=== PATIENT | female | born 1990 | race African-American/Black ===

== ENCOUNTER 2019-03-31 13:22 | Outpatient (CLI) | payer MEDICAID ==
[~2019-03-31] VITALS: Ht 162.6 cm; Wt 74.5 kg
--- NOTE | 2019-03-31 13:25 | NUR ---
1325- G4L0 [address] VÁSQUEZ AMBULATORY TO LR3 WITH COMPLAINT OF SROM AT 1030 UPON AWAKENING NOTICED WET UNDERWEAR, CHANGED UNDERWEAR AND SHOWERED AND NOTICED FEELING WET AGAIN. NO PAD IN UNDERWEAR UPON ARRIVAL AND REPORTS NO FLUID NOW. DENIES VAGINAL BLEEDING. REPORTS GOOD MOVEMENT. PLACED ON EFM, VSS, REACTIVE STRIP. SVE /-3, AMNITEST NEG, BOWI. UPDATED ON PLAN OF CARE. ASSESSMENT COMPLETE. 1407-DR. NORMAN NOTIFIED. 1534-PATIENT OFF EFM. DISCHARGE INSTRUCTIONS REVIEWED WITH PATEINT AND MOTHER. VERBALIZED UNDERSTANDING DENIES QUESTIONS. 1455-LEFT NARE SWABED FOR MRSA PROTOCOL. 1500-PATIENT AMBULATORY OFF UNIT WITH MOTHER.
[2019-03-31 13:31] VITALS: BP 118/70; PULSE 114; TEMP 98.6
[2019-03-31] MEDS ORDERED: PRENATAL (13:50)
[2019-03-31] MEDS ORDERED: ZYRTEC 10MG10 MG PO (13:51)
[2019-03-31] MEDS ORDERED: PROAIR HFA0.09 MG/AC IH (13:51)
[2019-03-31] MEDS ORDERED: VITAMIN D 1001000 IU PO (13:52)
[2019-03-31 14:00] VITALS: BP 118/70; PULSE 114; TEMP 98.6
[2019-03-31 14:34] VITALS: BP 104/68; PULSE 102
== END 2019-03-31 15:00 | disposition home or self-care (01) ==
LOC: LDRO 13:22 → LDR 13:29 → LDRO 13:29 → LDR 15:00
DX: O42.92 Full-term premature rupture of membranes, unspecified as to length of time between rupture and onset of labor (principal); Z3A.38 38 weeks gestation of pregnancy
CPT/HCPCS: OP

== ENCOUNTER 2019-04-17 06:52 | Inpatient (IN) | payer MEDICAID ==
[2019-04-17] VITALS (33 sets, daily range): BP systolic 95–121; BP diastolic 50–82; PULSE 67–100; TEMP 97.9–98.4
[~2019-04-17] VITALS: Ht 157.5 cm; Wt 76.8 kg
[~2019-04-17 06:52] MED LIST: PRENATAL; PROAIR HFA0.09 MG/AC IH; VITAMIN D 1001000 IU PO; ZYRTEC 10MG10 MG PO
--- NOTE | 2019-04-17 07:30 | NUR ---
Patient ambulatory to LDR3 for induction of labor. G4L0 at 40.3 weeks gestation, GBS+. Patient changed into gown, wedged left in bed. EFMs explained and applied. FHR 120 bpm, reactive. No CTX per toco or patient reports. VSS. Assessment completed, consents signed. Hx of marijauna use during , discussed UDS and cord stat with patient and patient states understanding. IV started in left hand with labs drawn from site. LR infusing per protocol. Clindamycin started per GBS+ protocol. Plan of care of reviewed. Call light within reach.
--- NOTE | 2019-04-17 07:45 | NUR ---
Pitocin started at 2mu per orders and protocol.
[2019-04-17 08:10] LABS: HEMOGLOBIN 11.5 g/dl (12.5-16.0); MEAN CELL VOLUME 87 fl (80.0-100.0); MEAN CORPUSCULAR HEMOGLOBIN 31 pg (27.0-31.0); MEAN CORPUSCULAR HGB CONC 35 g/dl (33.0-37.0); MEAN PLATELET VOLUME 11.3 fl (7.4-10.4); PLATELET COUNT 149 K/mm3 (130-400); RED BLOOD COUNT 3.75 M/mm3 (4.10-5.30); REDCELL DISTRIBUTION WIDTH-CV 13.4 % (11.5-14.5)
[2019-04-17 08:11] LABS: HEMATOCRIT 32.6 % (37.0-47.0)
--- NOTE | 2019-04-17 08:35 | NUR ---
Dr. Gandara to patient room, reviews strip, discusses plan of care. SVE with AROM. 2-/-2, clear fluid noted.
[2019-04-17 08:52] LABS: BAND 7 % (0-10); EOSINOPHIL 1 % (0-4); LYMPHOCYTE 30 % (20.0-51.0); METAMYELOCYTE 1 % (0-0); NEUTROPHILS 57 % (42.0-75.2); PLATELET ESTIMATE NORMAL (NORMAL)
[2019-04-17 09:29] LABS: TRICYCLIC ANTIDEPRESS URINE NEGATIVE
--- NOTE | 2019-04-17 09:35 | NUR ---
Patient more uncomfortable with contractions, requesting epidural. BACK SHOE OPERATOR notified.
--- NOTE | 2019-04-17 10:14 | NUR ---
1000 SEBASTIAN Hurtado to room to place epidural. 1005 Patient sits upright on the edge of the bed for procedure. EFM intermittently tracing in this position. 1014 Test dose administered. See anesthesia record for details. 1019 Patient wedged to left side.
--- NOTE | 2019-04-17 11:20 | NUR ---
1116 Osborne catheter placed. 1118 SVE by this nurse, large amount of clear fluid noted, prolapsed umbilical cord felt. This nurse continues vaginal exam and calls for additional help. 1119 Dr. Gandara notified but in surgery, 1119 Dr. Moore called and states on her way. 1120 Patient to OR.
[2019-04-18 00:35] VITALS: BP 95/67; PULSE 72; TEMP 97.7
[2019-04-18 04:30] VITALS: BP 104/76; PULSE 96; TEMP 98.2
[2019-04-18 07:50] VITALS: BP 104/57; PULSE 82; TEMP 98.1
--- NOTE | 2019-04-18 09:09 | NUR ---
Initial visit; Mom and Grandmother thanked Sonography Technologist for offering congratulations for the of their little girl. Sonography Technologist thanked them for choosing [facility].
--- NOTE | 2019-04-18 09:52 | NUR ---
Physician Intensivist met with patient and patient's mother, Joanna to review supports and any needed resources. Patient lives in [place] with her mother. Patient reports father of baby, Brock Lopez (ph#[phone]) is involved and has visited hospital. Patient states she does not work and is a student at [employer]. Patient has not explored childcare options at this time but plans to stay home with baby for a couple months. Patient is currently using formula but is going to work with a contract specialist today to hopefully start . Patient states she has all supplies needed for her baby. SW reviewed patient history of marijuana use during . Patient is open with SW and states the last time she used was in December and has not used since. SW reviewed chart and patient had two positive drug screens during (11/29/18 and 01/19/19). SW awaiting cord blood results. No additional concerns at this time. SW provided update to Dr. Marie. SW made report to Child Protective Services based on positive urine drug screens during . Intake #[id number].
[2019-04-18 16:30] VITALS: BP 108/62; PULSE 76; TEMP 97.9
[2019-04-18 20:00] VITALS: BP 102/62; PULSE 73; TEMP 98
[2019-04-19 07:15] VITALS: BP 109/60; PULSE 81; TEMP 98.2
[2019-04-19] MEDS ORDERED: MOTRIN 800800 MG/TAB PO (07:50)
[2019-04-19] MEDS ORDERED: PERCOCET 325 MG1 TA2 PO (07:51)
--- NOTE | 2019-04-20 08:12 | NUR ---
Patient's infant's cord blood tested negative for illegal drugs.
== END 2019-04-19 11:55 | disposition home or self-care (01) | DRG 787 ==
LOC: LDR 06:52 → OB 06:52 → LDR 08:32 → OB 12:50
PROVIDERS: ADMIT Obstetrics & Gynecology
PROC: 10D00Z1 Extraction of Products of Conception, Low, Open Approach (ICD-10-PCS; principal; 2019-04-17)
PROC: 10907ZC Drainage of Amniotic Fluid, Therapeutic from Products of Conception, Via Natural or Artificial Opening (ICD-10-PCS; 2019-04-17)
PROC: 3E033VJ Introduction of Other Hormone into Peripheral Vein, Percutaneous Approach (ICD-10-PCS; 2019-04-17)
DX: O48.0 Post-term pregnancy (principal); O99.324 Drug use complicating childbirth; O99.52 Diseases of the respiratory system complicating childbirth; J45.909 Unspecified asthma, uncomplicated; F12.90 Cannabis use, unspecified, uncomplicated; O99.334 Smoking (tobacco) complicating childbirth; O99.824 Streptococcus B carrier state complicating childbirth; O69.0XX0 Labor and delivery complicated by prolapse of cord, not applicable or unspecified; Z3A.40 40 weeks gestation of pregnancy; Z37.0 Single live birth; Z86.14 Personal history of Methicillin resistant Staphylococcus aureus infection
CPT/HCPCS: J0690; J1885; J2270; J2405; J2590; J2791; J7120